=== PATIENT | male | born 1970 | race Hispanic/Latino ===

== ENCOUNTER 2019-06-30 21:47 | Emergency (ER) | payer SELFPAY ==
[2019-06-30] MEDS ORDERED: IBUPROFEN 400 MG TAB ONE (22:54)
[2019-06-30] MEDS ORDERED: dexAMETHasone 4 MG TAB ONE (22:54)
--- NOTE | 2019-07-01 01:06 | ER ---
Nurse's Notes [facility] Name: Stephen Pizarro Age: 49 yrs Sex: Male : 1970 Arrival Date: 06/30/2019 Time: 21:49 Bed 24 Private MD: Diagnosis: Influenza like illness Presentation: 06/30 21:59 Presenting complaint: Patient states: For 3 days his whole body has felt really hot and aj1 he has been having a lot of headaches. Patient reports subjective fever. Denies cough, congestion. Denies N/V/D. Transition of care: patient was not received from another setting of care. Onset of symptoms was 2019. Risk Assessment: Do you want to hurt yourself or someone else? Patient reports no desire to harm self or others. Initial Sepsis Screen: Does the patient meet any 2 criteria? No. Patient's initial sepsis screen is negative. Does the patient have a suspected source of infection? No. Patient's initial sepsis screen is negative. Care prior to arrival: None. 21:59 Method Of Arrival: Ambulatory aj 21:59 Acuity: ELSA 4 aj1 Triage Assessment: 22:01 Headache History: Denies prior headaches. General: Appears in no apparent distress. aj1 uncomfortable, Behavior is calm, cooperative, appropriate for age. Pain: Complains of pain in forehead, left samaritan and occipital area Pain currently is 7 out of 10 on a pain scale. Pain began 2-3 days ago. Also complains of no other associated symptoms. Neuro: Level of Consciousness is awake, alert, obeys commands, Oriented to person, place, time, situation. Cardiovascular: Patient's skin is warm and dry. Respiratory: Airway is patent Respiratory effort is even, unlabored, Respiratory pattern is regular, symmetrical. Historical: - Allergies: 22: No Known Allergies; aj1 - Home Meds: 22: "cholesterol medication" [Active]; aj1 - PMHx: 22:01 Hyperlipidemia; aj1 - Immunization history:: Flu vaccine is not up to date. - Social history:: Smoking status: Patient/guardian denies using tobacco. - Ebola Screening: : Patient denies travel to an Ebola-affected area in the 21 days before illness onset. Screenin:30 Abuse screen: Denies threats or abuse. Denies injuries from another. Nutritional wh screening: No deficits noted. Tuberculosis screening: No symptoms or risk factors identified. Fall Risk None identified. Assessment: 22:30 General: Appears in no apparent distress. Behavior is calm, cooperative, appropriate wh for age. Pain: Complains of pain in headache. Neuro: Level of Consciousness is awake, alert, obeys commands, Oriented to person, place, time, situation, Appropriate for age Reports headache frontal area. Cardiovascular: Capillary refill < 3 seconds. Respiratory: Airway is patent Respiratory effort is even, unlabored, Respiratory pattern is regular, symmetrical. GI: Abdomen is flat, non-distended. : No signs and/or symptoms were reported regarding the genitourinary system. EENT: No signs and/or symptoms were reported regarding the EENT system. Derm: Skin is intact, is healthy with good turgor, Skin is pink, warm \\T\\ dry. normal. Musculoskeletal: Circulation, motion, and sensation intact. 23:39 Reassessment: Patient appears in no apparent distress at this time. No changes from previously documented assessment. Patient and/or family updated on plan of care and expected duration. Pain level reassessed. Patient is alert, oriented x 3, equal unlabored respirations, skin warm/dry/pink. 07/01 00:53 Reassessment: Patient appears in no apparent distress at this time. No changes from [facility] previously documented assessment. Patient and/or family updated on plan of care and expected duration. Pain level reassessed. Patient is alert, oriented x 3, equal unlabored respirations, skin warm/dry/pink. Vital Signs: 06/30 22:01 BP 150 / 91; Pulse 91; Resp 18; Temp 98.4; Pulse Ox 97% on R/A; Weight 74.84 kg (R); aj1 Pain 7/10; 23:44 BP 134 / 95; Pulse 68; Resp 18; Pulse Ox 99% on R/A; wh 07/01 00:53 BP 134 / 90; Pulse 72; Resp 18; Pulse Ox 97% on R/A; aj1 ED Course: 06/30 21:49 Patient arrived in ED. es 22:00 Triage completed. aj1 22:01 Arm band placed on Patient placed in an exam room. aj1 22:04 Darvin Mathias is Primary Nurse. 22:31 Patient has correct armband on for positive identification. Bed in low position. Call light in reach. Side rails up X 1. Pulse ox on. NIBP on. 22:33 Miguel Mckeon MD is Attending Physician. ps1 22:36 Strep Sent. jp3 22:36 Flu Sent. jp3 22:36 Flu and/or RSV swab sent to lab. Strep swab sent to lab. Patient maintains SpO2 jp3 saturation greater than 95% on room air. 22:37 Verbal reassurance given. jp3 07/01 00:16 No provider procedures requiring assistance completed. Patient did not have IV access during this emergency room visit. Administered Medications: 06/30 22:52 Drug: Decadron 10 mg Route: PO; 07/01 00:16 Follow up: Response: No adverse reaction 06/30 22:52 Drug: Motrin 800 mg Route: PO; 07/01 00:16 Follow up: Response: No adverse reaction; Pain is decreased Outcome: 00:31 Discharge ordered by MD. ps1 00:53 Discharged to home ambulatory. aj1 00:53 Condition: good 00:53 Discharge instructions given to patient, Instructed on discharge instructions, follow up and referral plans. medication usage, Demonstrated understanding of instructions, follow-up care, medications, Prescriptions given X 3. 00:53 Patient left the ED. aj1 Signatures: Imelda Lynn, RN RN aj1 Emmy Frederick Winsy Miguel Mckeon MD MD ps1 Ulises Chavez jp3
--- NOTE | 2019-07-01 01:11 | EDPHYS ---
Physician Documentation [facility] Name: Stephen Pizarro Age: 49 yrs Sex: Male : 1970 Arrival Date: 06/30/2019 Time: 21:49 Bed 24 Private MD: ED Physician Miguel Mckeon HPI: 07/01 00:16 This 49 yrs old Male presents to ER via Ambulatory with complaints of Fever, ps1 Headache. 00:16 patient has had influenza like illness for last 3 days. Patient has had a headache and ps1 fever which is subjective. Additionally has body aches and pain. OOW for Tamiflu/xofluza. Afebrile during triage. Has high cholesterol. . Historical: - Allergies: 06/30 22:01 No Known Allergies; aj1 - Home Meds: 22:01 "cholesterol medication" [Active]; aj1 - PMHx: 22:01 Hyperlipidemia; aj1 - Immunization history:: Flu vaccine is not up to date. - Social history:: Smoking status: Patient/guardian denies using tobacco. - Ebola Screening: : Patient denies travel to an Ebola-affected area in the 21 days before illness onset. ROS: 07/01 00:16 Cardiovascular: Negative for chest pain, palpitations, and edema, Respiratory: Negative ps1 for shortness of breath, cough, wheezing, and pleuritic chest pain, Abdomen/GI: Negative for abdominal pain, nausea, vomiting, diarrhea, and constipation, Back: Negative for injury and pain, MS/Extremity: Negative for injury and deformity. Constitutional: Positive for body aches, chills, fatigue, fever. Neuro: Positive for headache. Exam: 00:18 Constitutional: This is a well developed, well nourished patient who is awake, alert, ps1 and in no acute distress. Head/Face: Normocephalic, atraumatic. Eyes: Pupils equal round and reactive to light, extra-ocular motions intact. Lids and lashes normal. Conjunctiva and sclera are non-icteric and not injected. Chest/axilla: Normal chest wall appearance and motion. Nontender with no deformity. No lesions are appreciated. Cardiovascular: Regular rate and rhythm. No gallops, murmurs, or rubs. Normal PMI, no JVD. No pulse deficits. Respiratory: Lungs have equal breath sounds bilaterally, clear to auscultation and percussion. No rales, rhonchi or wheezes noted. No increased work of breathing, no retractions or nasal flaring. Abdomen/GI: Soft, non-tender, with normal bowel sounds. No distension or tympany. No guarding or rebound. No evidence of tenderness throughout. MS/ Extremity: Pulses equal, no cyanosis. Neurovascular intact. Full, normal range of motion. Neuro: Awake and alert, GCS 15, oriented to person, place, time, and situation. Cranial nerves II-XII grossly intact. Sensory grossly intact. Psych: Awake, alert, with orientation to person, place and time. Behavior, mood, and affect are within normal limits. Vital Signs: 06/30 22:01 BP 150 / 91; Pulse 91; Resp 18; Temp 98.4; Pulse Ox 97% on R/A; Weight 74.84 kg (R); aj1 Pain 7/10; 23:44 BP 134 / 95; Pulse 68; Resp 18; Pulse Ox 99% on R/A; wh 07/01 00:53 BP 134 / 90; Pulse 72; Resp 18; Pulse Ox 97% on R/A; aj1 MDM: 06/30 23:46 Patient medically screened. ps1 06/30 22:29 Order name: Flu; Complete Time: 23:20 06/30 22:29 Order name: Strep; Complete Time: 23:20 06/30 23:00 Order name: Throat Culture EDMS Administered Medications: 22:52 Drug: Decadron 10 mg Route: PO; 07/01 00:16 Follow up: Response: No adverse reaction 06/30 22:52 Drug: Motrin 800 mg Route: PO; 07/01 00:16 Follow up: Response: No adverse reaction; Pain is decreased Disposition: 07/01/19 00:31 Discharged to Home. Impression: Influenza like illness. - Condition is Stable. - Discharge Instructions: Viral Respiratory Infection, [id number]. - Prescriptions for Anaprox DS 550 mg Oral Tablet - take 1 tablet by ORAL route every 12 hours As needed; 20 tablet. Tessalon Perles 100 mg Oral Capsule - take 1 capsule by ORAL route every 8 hours As needed; 15 capsule. chlorpheniramine maleate 4 mg Oral Tablet - take 1 tablet by ORAL route every 6 hours As needed; 30 tablet. - Medication Reconciliation Form, Thank You Letter, Antibiotic Education, Prescription Opioid Use form. - Follow up: Private Physician; When: As needed; Reason: Recheck today's complaints, Continuance of care, Re-evaluation by your physician. Follow up: Emergency Department; When: As needed; Reason: Worsening of condition. - Problem is new. - Symptoms have improved. Signatures: Dispatcher [employer] EDImelda Esparza RN RN aj1 Darvin Mathias Phillip, MD MD ps1 Corrections: (The following items were deleted from the chart) 00:53 00:31 07/01/2019 00:31 Discharged to Home. Impression: Influenza like illness. aj1 Condition is Stable. Forms are Medication Reconciliation Form, Thank You Letter, Antibiotic Education, Prescription Opioid Use. Follow up: Private Physician; When: As needed; Reason: Recheck today's complaints, Continuance of care, Re-evaluation by your physician. Follow up: Emergency Department; When: As needed; Reason: Worsening of condition. Problem is new. Symptoms have improved. ps1
[2019-07-01 02:01] VITALS: TEMP 98.4
[2019-07-01 02:04] VITALS: BP 134/90; O2SAT 97
== END 2019-07-01 00:53 | disposition home or self-care (01) ==
LOC: ER 21:47
DX: R50.9 Fever, unspecified (principal); E78.5 Hyperlipidemia, unspecified
CPT/HCPCS: 87070; 87081; 87804; 99284; J8540

== ENCOUNTER 2023-01-28 12:51 | Emergency (ER) | payer SELFPAY ==
[2023-01-28 13:28] LABS: Absolute Lymphocytes (CBC) 2.3 K/uL (0.7-4.9); Hematocrit 41.9 % (39.6-49.0); Lymphocytes % 27.8 % (15.3-44.8); MCV 92.7 fL (80-100); MPV 8.3 fL (7.6-11.3); RBC Red Blood Cell Count 4.52 M/uL (4.33-5.43)
[2023-01-28] MEDS ORDERED: NA CHLORIDE 0.9% 1,000 ML ONE (13:30)
[2023-01-28 13:37] LABS: Specific Gravity 1.013 (1.005-1.030); Urine Bilirubin NEGATIVE (Negative); Urine Blood Negative (Negative); Urine Clarity Clear (Clear); Urine Color Light-Yellow (Yellow); Urine Glucose NEGATIVE (Negative); Urine Protein NEGATIVE (Negative); Urine Urobilinogen Normal (Normal)
[2023-01-28 13:44] LABS: Barbiturates NEGATIVE (NEGATIVE); Benzodiazepines NEGATIVE (NEGATIVE); Cocaine NEGATIVE (NEGATIVE); METHAMPHETAM NEGATIVE (NEGATIVE); Methadone NEGATIVE (NEGATIVE); Opiates NEGATIVE (NEGATIVE); Phencyclidine NEGATIVE (NEGATIVE); THC Cannibis NEGATIVE (NEGATIVE)
[2023-01-28 13:55] LABS: Albumin 4.1 g/dL (3.4-5.0); Bilirubin Direct 0.3 mg/dL (0-0.2); Bilirubin Indirect, Calculated 0.6 mg/dL (0.2-0.8); Bilirubin Total 0.9 mg/dL (0.2-1.0); Potassium 3.3 mEq/L (3.5-5.1); Troponin High Sensitivity 3.9 pg/mL (<58.9)
--- NOTE | 2023-01-28 14:16 | RAD REPORT ---
EXAM DESCRIPTION: RAD - Chest Single View - 01/28/2023 2:06 pm CLINICAL HISTORY: CHEST PAIN Chest pain. COMPARISON: No comparisons FINDINGS: Portable technique limits examination quality. The lungs are grossly clear. The heart is normal in size. No displaced fractures. IMPRESSION: No acute intrathoracic process suspected.
--- NOTE | 2023-01-28 14:38 | EDPHYS ---
Physician Documentation [facility] Name: Stephen Maradiaga Age: 52 yrs Sex: Male : 1970 Arrival Date: 01/28/2023 Time: 12:51 Bed 6 Private MD: ED Physician Gertrude Melton Historical: - Allergies: 01/28 12:56 No Known Allergies; bp - PMHx: 12:56 Hypertensive disorder; Hypercholesterolemia; bp - Immunization history:: Adult Immunizations up to date. - Social history:: Smoking status: Patient denies any tobacco usage or history of. Patient uses alcohol, on a daily basis. Vital Signs: 12:54 BP 117 / 77; Pulse 104; Resp 16; Temp 98; Pulse Ox 99% ; bp 13:49 BP 127 / 82; Pulse 96; Resp 18; Pulse Ox 99% ; ko1 14:05 Temp 98.6; dd1 MDM: 13:08 Patient medically screened. cp3 01/28 13:03 Order name: Basic Metabolic Panel; Complete Time: 14:12 cp3 01/28 13:03 Order name: CBC with Diff; Complete Time: 13:35 cp3 01/28 13:03 Order name: LFT's; Complete Time: 14:12 cp3 01/28 13:03 Order name: Troponin HS; Complete Time: 14:12 cp3 01/28 13:03 Order name: Ethanol; Complete Time: 14:12 cp3 01/28 13:03 Order name: Urinalysis w/ reflexes; Complete Time: 14:12 cp3 01/28 13:03 Order name: Urine Drug Screen; Complete Time: 14:12 cp3 01/28 13:03 Order name: XRAY Chest (1 view); Complete Time: 14:28 cp3 01/28 13:03 Order name: EKG; Complete Time: 13:03 cp3 01/28 13:03 Order name: Cardiac monitoring; Complete Time: 13:19 cp3 01/28 13:03 Order name: EKG - Nurse/Tech; Complete Time: 13:19 cp3 01/28 13:03 Order name: IV Saline Lock; Complete Time: 13:19 cp3 01/28 13:03 Order name: Labs collected and sent; Complete Time: 13:23 cp3 01/28 13:03 Order name: O2 Per Protocol; Complete Time: 13:19 cp3 01/28 13:03 Order name: O2 Sat Monitoring; Complete Time: 13:19 cp3 Administered Medications: 13:32 Drug: NS 0.9% IV 1000 ml Route: IV; Rate: 1 bolus; Site: right forearm; ko1 15:11 Follow up: Response: No adverse reaction; IV Status: Completed infusion; IV Intake: dd1 1000ml 15:13 Follow up: IV Status: Completed infusion; IV Intake: 1000ml dd1 Disposition Summary: 01/28/23 14:37 Discharge Ordered Location: Home cp3 Condition: Stable cp3 Diagnosis - Palpitations cp3 - Chest pain, unspecified cp3 - Pure hypercholesterolemia cp3 Followup: cp3 - With: Lamont Shanks MD - When: - Reason: Re-evaluation by your physician Discharge Instructions: - Discharge Summary Sheet cp3 - Nonspecific Chest Pain, Adult, [id number] cp3 Forms: - Medication Reconciliation Form cp3 - Thank You Letter cp3 - Antibiotic Education cp3 - Prescription Opioid Use cp3 - Patient Portal Instructions cp3 Signatures: Dispatcher [employer] Gertrude Nixon MD MD cp3 Randy Mota RN RN Kelley Torres RN RN ko1 Giancarlo Silva RN dd1
--- NOTE | 2023-01-28 14:38 | ER ---
Nurse's Notes [facility] Name: Stephen Maradiaga Age: 52 yrs Sex: Male : 1970 Arrival Date: 01/28/2023 Time: 12:51 Bed 6 Private MD: Diagnosis: Palpitations;Chest pain, unspecified;Pure hypercholesterolemia Presentation: 01/28 12:54 Chief complaint: EMS states: DROVE SELF TO STATION FOR CHEST PAIN AND BOYCE SINCE 0900. bp Coronavirus screen: At this time, the client does not indicate any symptoms associated with coronavirus-19. Ebola Screen: No symptoms or risks identified at this time. Initial Sepsis Screen: Does the patient meet any 2 criteria? Yes No. Patient's initial sepsis screen is negative. Does the patient have a suspected source of infection? No. Patient's initial sepsis screen is negative. Risk Assessment: Do you want to hurt yourself or someone else? Patient reports no desire to harm self or others. Onset of symptoms was January 28, 2023 at 09:00. Care prior to arrival: Medication(s) given: ASA, 81 mg, x 4, Nitroglycerin, 0.4 mg SL x 1, IV initiated. 20 GA, in the right antecubital area. 12:54 Method Of Arrival: EMS: [facility] bp 12:54 Acuity: ELSA 3 bp Triage Assessment: 12:56 General: Appears in no apparent distress. uncomfortable, Behavior is calm, cooperative, bp appropriate for age. Pain: Complains of pain in head and chest. EENT: No deficits noted. Neuro: No deficits noted. Cardiovascular: Rhythm is sinus tachycardia. Respiratory: No deficits noted. GI: No signs and/or symptoms were reported involving the gastrointestinal system. : No signs and/or symptoms were reported regarding the genitourinary system. Derm: No deficits noted. Musculoskeletal: No deficits noted. Historical: - Allergies: 12:56 No Known Allergies; bp - PMHx: 12:56 Hypertensive disorder; Hypercholesterolemia; bp - Immunization history:: Adult Immunizations up to date. - Social history:: Smoking status: Patient denies any tobacco usage or history of. Patient uses alcohol, on a daily basis. Screenin:57 [facility] ED Fall Risk Assessment (Adult) History of falling in the last 3 months, bp including since admission No falls in past 3 months (0 pts). Abuse screen: Denies threats or abuse. Denies injuries from another. Nutritional screening: No deficits noted. Tuberculosis screening: No symptoms or risk factors identified. Assessment: 12:57 General: SEE TRIAGE NOTE. bp 15:13 Pain: Pain does not radiate. 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 dd1 Vital Signs: 12:54 BP 117 / 77; Pulse 104; Resp 16; Temp 98; Pulse Ox 99% ; bp 13:49 BP 127 / 82; Pulse 96; Resp 18; Pulse Ox 99% ; ko1 14:05 Temp 98.6; dd1 ED Course: 12:54 Patient arrived in ED. bp 12:56 Triage completed. bp 12:57 Gertrude Melton MD is Attending Physician. cp3 12:57 Arm band placed on. bp 12:57 Patient has correct armband on for positive identification. Bed in low position. Call bp light in reach. Side rails up X2. Provided Education on:. Client placed on continuous cardiac and pulse oximetry monitoring. NIBP monitoring applied. 12:57 Patient maintains SpO2 saturation greater than 95% on room air. bp 12:58 Maintain EMS IV. Dressing intact. Good blood return noted. Site clean \T\ dry. Gauge \T\ bp site: 20 GA R AC. 12:59 Randy Mota, RN is Primary Nurse. bp 13:22 Ethanol Sent. dd1 13:23 Basic Metabolic Panel Sent. dd1 13:23 CBC with Diff Sent. dd1 13:23 LFT's Sent. ko1 13:24 Troponin HS Sent. ko1 13:28 Basic Metabolic Panel Sent. dd1 13:28 CBC with Diff Sent. dd1 13:29 Troponin HS Sent. dd1 13:32 Urine Drug Screen Sent. ko1 13:32 Urinalysis w/ reflexes Sent. ko1 14:08 XRAY Chest (1 view) In Process Unspecified. EDMS 14:34 Lamont Shanks MD is Referral Physician. cp3 15:13 No provider procedures requiring assistance completed. IV discontinued, intact, dd1 bleeding controlled, No redness/swelling at site. Pressure dressing applied. Administered Medications: 13:32 Drug: NS 0.9% IV 1000 ml Route: IV; Rate: 1 bolus; Site: right forearm; ko1 15:11 Follow up: Response: No adverse reaction; IV Status: Completed infusion; IV Intake: dd1 1000ml 15:13 Follow up: IV Status: Completed infusion; IV Intake: 1000ml dd1 Medication: 12:57 VIS not applicable for this client. bp Intake: 15:11 IV: 1000ml; Total: 1000ml. dd1 15:13 IV: 1000ml; Total: 2000ml. dd1 Outcome: 14:37 Discharge ordered by . cp3 15:13 Discharged to home ambulatory. dd1 15:13 Condition: good 15:13 Discharge instructions given to patient, Instructed on discharge instructions, follow up and referral plans. Demonstrated understanding of instructions, follow-up care. 15:14 Patient left the ED. dd1 Signatures: Dispatcher [employer] EDGertrude Peña MD MD cp3 Randy Mota, RN RN bp Kelley Robledo, RN RN ko1 Giancarlo Silva, RN RN dd1 Corrections: (The following items were deleted from the chart) 12:58 12:57 Missed attempt(s): 20 gauge in right antecubital area. bp bp 12:59 12:54 BP 117 / 77; Pulse 14bpm; Resp 16bpm; Pulse Ox 99%; Temp 98F; bp bp
[2023-01-28 15:27] VITALS: O2SAT 99
[2023-01-28 15:29] VITALS: BP 127/82
[2023-01-28 15:30] VITALS: TEMP 98.6
--- NOTE | 2023-02-01 13:17 | EKG ---
Test Date: 2023-01-28 Test Time: 12:55:33 Reducing Salon Attendant: NADIR MEASUREMENT RESULTS: Intervals: Rate: 100 WY: 164 QRSD: 86 QT: 352 QTc: 454 [place]: P: 37 WY: 164 QRS: -42 T: 8 INTERPRETIVE STATEMENTS: Normal sinus rhythm Left axis deviation Left ventricular hypertrophy Abnormal ECG No previous ECG available for comparison Electronically Signed On 02-01-23 13:11:14 CDT by Keagan Varner
== END 2023-01-28 15:14 | disposition home or self-care (01) ==
LOC: MERGE 12:51 → ER 12:51
DX: R00.2 Palpitations (principal); E87.6 Hypokalemia
CPT/HCPCS: 36415; 71045; 80048; 80076; 80307; 81003; 82077; 84484; 85025; 93005; 96360; 96361; 99285; J7030